=== PATIENT | male | born 1985 | race Asian ===

== ENCOUNTER 2019-07-22 18:47 | Emergency (ER) | payer SELFPAY ==
[~2019-07-22] VITALS: Ht 165.1 cm; Wt 68.2 kg
[2019-07-22] MEDS ORDERED: IBUPROFEN 600 MG TABLET PO ONE (21:30)
[2019-07-22] MEDS ORDERED: LIDOCAINE 5% TRANSDERMAL PATCH TD ONE (21:30)
[2019-07-22 21:43] VITALS: BP 140/85
== END 2019-07-22 21:44 | disposition home or self-care (01) ==
LOC: EMS 18:51
DX: S16.1XXA Strain of muscle, fascia and tendon at neck level, initial encounter (principal); R42 Dizziness and giddiness; F17.210 Nicotine dependence, cigarettes, uncomplicated; V49.88XA Car occupant (driver) (passenger) injured in other specified transport accidents, initial encounter; Y93.89 Activity, other specified; Y92.488 Other paved roadways as the place of occurrence of the external cause; Y99.8 Other external cause status